=== PATIENT | male | born 1985 | race Hispanic/Latino ===

== ENCOUNTER 2017-07-24 21:07 | Emergency (ER) | payer SELFPAY | END 2017-07-24 21:12 | disposition short-term general hospital (02) | LOC: ER 21:07 | DX: R10.9 Unspecified abdominal pain (principal) ==

== ENCOUNTER 2022-08-04 09:45 | Emergency (ER) | payer SELFPAY ==
[~2022-08-04] VITALS: Ht 185.4 cm; Wt 147.0 kg
[2022-08-04] MEDS ORDERED: KETOROLAC TROMETHAMINE 60 MG/2 ML VIAL IM ONE (10:00)
[2022-08-04] MEDS ORDERED: ACETAMIN/BUTALBITAL/CAFFEINE TAB PO ONE (10:00)
[2022-08-04] MEDS ORDERED: ACETAMIN/BUTALBITAL/CAFFEINE TAB ONE (13:23)
[2022-08-04] MEDS ORDERED: KETOROLAC TROMETHAMINE 60 MG/2 ML VIAL ONE (13:23)
[2022-08-04] MEDS ORDERED: FIORICET 50-301 EACH PO (13:47)
== END 2022-08-04 13:50 | disposition home or self-care (01) ==
LOC: ER 09:50
DX: R51.9 Headache, unspecified (principal); I10 Essential (primary) hypertension
CPT/HCPCS: 70450; 99283; J1885